=== PATIENT | male | born 1975 | race Caucasian/White ===

== ENCOUNTER 2019-09-07 14:04 | Emergency (ER) | payer OTHER ==
[~2019-09-07] VITALS: Ht 177.8 cm; Wt 72.6 kg
[~2019-09-07 14:04] MED LIST: CELEXA 10 MG TA10 M1 PO; CIPROFLOXACIN500 M1 PO; IBUPROFEN 800800 M1 PO; NIACIN 100MG T100 M1 PO; NORCO 5-325 TA1 EACH PO
[2019-09-07] MEDS ORDERED: BUPROPION XL150 MG PO (14:22)
[2019-09-07 14:41] LABS: URINE BILIRUBIN NEGATIVE (Negative); URINE BLOOD 3+ (Negative); URINE CLARITY CLEAR; URINE COLOR YELLOW; URINE GLUCOSE-RANDOM NEGATIVE (Negative); URINE KETONES NEGATIVE (Negative); URINE LEUKOCYTES-REFLEX NEGATIVE (Negative); URINE NITRITE-REFLEX NEGATIVE (Negative); URINE PROTEIN TRACE (Negative); URINE UROBILINOGEN 0.2 E.U./dl (0.2-1.0)
[2019-09-07 14:47] LABS: HEMATOCRIT 43.2 % (42.0-52.0); HEMOGLOBIN 15.1 gm/dL (14.0-18.0); MCH 28.8 pg (26.0-34.0); MCHC 34.9 g/dL (28.0-37.0); MCV 82.6 fL (80.0-100.0); MPV 8.6 fl. (7.2-11.1); NUCLEATED RBCS 0 /100WBC; PLATELET COUNT* 258 thou/uL (150-400); RBC 5.23 mil/uL (4.50-6.00); RDW-CV 13.3 % (10.5-14.5); WBC 13.9 thou/uL (4.0-11.0)
[2019-09-07 14:55] LABS: CALCIUM 8.6 mg/dL (8.5-10.1); CREATININE 1.4 mg/dL (0.6-1.3); POTASSIUM 3.9 mmol/L (3.5-5.1)
[2019-09-07 15:00] LABS: SQUAMOUS 0-3 Few /LPF (0-3)
[2019-09-07 15:02] LABS: URINE WBC-REFLEX 0-5 Rare /HPF (0-5)
[2019-09-07 15:03] LABS: BACTERIA-REFLEX 1-9 Few /HPF (None Seen); MUCUS >6 Heavy strn/LPF (None Seen)
[2019-09-07 15:04] LABS: HYALINE CASTS 0-3 Few /LPF (None Seen)
[2019-09-07 15:05] LABS: CRYSTALS None Seen /LPF (None Seen)
[2019-09-07 15:08] LABS: TOTAL BILIRUBIN 0.5 mg/dL (<0.1-1.0); TOTAL PROTEIN 7.5 g/dL (6.4-8.2)
[2019-09-07 15:25] LABS: ABSOLUTE LYMPHOCYTES 0.6 thou/uL (0.8-5.3); ABSOLUTE MONOCYTES 0.7 thou/uL (0.0-1.2); ABSOLUTE NEUTROPHILS 12.6 thou/uL (1.6-8.1); METAMYELOCYTES 1 %
[2019-09-07 15:26] LABS: PLATELET ESTIMATE ADEQUATE; TOXIC GRANULATION Occasional
[2019-09-07] MEDS ORDERED: ONDANSETRON HCL4 M2 PO (16:25)
[2019-09-07] MEDS ORDERED: FLOMAX0.4 MG PO (16:25)
[2019-09-07] MEDS ORDERED: IBUPROFEN 800800 M1 PO (16:25)
[2019-09-07] MEDS ORDERED: NORCO 5-325 TA1 EAC2 PO ×2 (16:25→16:26)
[2019-09-07 16:45] VITALS: BP 169/74
== END 2019-09-07 16:45 | disposition home or self-care (01) ==
LOC: M.ERS 14:04
PROVIDERS: Nurse Practitioner Family
DX: N20.1 Calculus of ureter (principal); E78.00 Pure hypercholesterolemia, unspecified